=== PATIENT | male | born 1955 | race Caucasian/White ===

== ENCOUNTER 2016-07-30 01:48 | Observation (INO) | payer SELFPAY ==
[2016-07-30] MEDS ORDERED: ASPIRIN 325 MG TABLET PO ONE (01:57)
--- NOTE | 2016-07-30 02:09 | Emergency Department Record ---
History of Present Illness - General Stated Complaint: CHEST PAIN Time Seen by Provider: 07/30/16 01:57 Source: Patient - History of Present Illness Initial Comments: The patient was sitting watching TV when he developed 8-9/10 chest heaviness "like a cement cinder block was on my chest" at 5 p.m. It was non radiating, did not go through to his back, was associated with SOB/JEANETTE. This continued until 12 midnight when he went to bed which worsened his JEANETTE and pain when he laid flat. He got up to take ibuprofen about 12:30 and became very dizzy like he might pass out after he walked across the room. He finally became fearful enough about 1:30 to call EMS because he lives alone and there was no one to help him or find him. Many years ago he states he had a heart attack at the age of 35. He continues to smoke, but denies DM, htn, chol elevation or FH. He does not see any doctors, takes no meds, has no known allergies. MD Complaint: Chest pain - Related Data Home Medications Medication Instructions Recorded Confirmed Last Taken Penicillin V Potassium 500 mg PO BID 09/22/15 09/22/15 09/21/15 Allergies Allergy/AdvReac Type Severity Reaction Status Date / Time No Known Drug Allergies Allergy Verified 09/22/15 03:22 Review of Systems Reviewed: No additional complaints except as noted below Constitutional: Reports: As per HPI. Denies: Chills, Fever, Malaise, Night sweats, Weakness, Weight change Eyes: Reports: As per HPI. Denies: Eye discharge, Eye pain, Photophobia, Vision change ENT: Reports: As per HPI. Denies: Congestion, Dental pain, Ear pain, Epistaxis , Hearing loss, Throat pain Respiratory: Reports: As per HPI. Denies: Cough, Dyspnea, Hemoptysis, Stridor, Wheezes Cardiovascular: Reports: As per HPI. Denies: Arrhythmia, Chest pain, Dyspnea on exertion, Edema, Murmurs, Orthopnea, Palpitations, Paroxysmal nocturnal dyspnea, Rheumatic Fever, Syncope Endocrine: Reports: As per HPI. Denies: Fatigue, Heat or cold intolerance, Polydipsia, Polyuria Gastrointestinal: Reports: As per HPI. Denies: Abdominal pain, Constipation, Diarrhea, Hematemesis, Hematochezia, Melena, Nausea, Vomiting Genitourinary: Reports: As per HPI. Denies: Dysuria, Frequency, Hematuria, Incontinence, Retention, Testicular pain, Testicular mass, Urgency Musculoskeletal: Reports: As per HPI. Denies: Arthralgia, Back pain, Gout, Joint swelling, Myalgia, Neck pain Skin: Reports: As per HPI. Denies: Bruising, Change in color, Change in hair/ nails, Lesions, Pruritus, Rash Neurological: Reports: As per HPI. Denies: Abnormal gait, Confusion, Headache, Numbness, Paresthesias, Seizure, Tingling, Tremors, Vertigo, Weakness Psychiatric: Reports: As per HPI. Denies: Anxiety, Auditory hallucinations, Depression, Homicidal thoughts, Suicidal thoughts, Visual hallucinations Hematological/Lymphatic: Reports: As per HPI. Denies: Anemia, Blood Clots, Easy bleeding, Easy bruising, Swollen glands Past Medical History - SOCIAL HISTORY Smoking Status: Current every day smoker - RESPIRATORY Hx Respiratory Disorders: No - CARDIOVASCULAR Hx Cardio Disorders: Yes Hx Heart Attack: Yes - NEURO Hx Neuro Disorders: No - GI Hx GI Disorders: No - Hx Genitourinary Disorders: No - ENDOCRINE Hx Endocrine Disorders: No Hx Diabetes: No Hx Thyroid Disease: No - MUSCULOSKELETAL Hx Musculoskeletal Disorders: No - PSYCH Hx Psych Problems: No - HEMATOLOGY/ONCOLOGY Hx Hematology/Oncology Disorders: No Family Medical History Hx Heart Disease: Father, Grandparents Physical Exam - General General Appearance: Alert, Oriented x3, Cooperative, No acute distress, Other ( smells of cigarettes) - Head Head exam: Normal inspection - Eye Eye exam: Normal appearance, PERRL Pupils: Normal accommodation - ENT ENT exam: Normal exam, Mucous membranes moist, Normal external ear exam, Normal orophraynx, TM's normal bilaterally Ear exam: Normal external inspection. negative: External canal tenderness Nasal Exam: Normal inspection. negative: Discharge, Sinus tenderness Mouth exam: Normal external inspection, Tongue normal Teeth exam: Normal inspection. negative: Dental caries Throat exam: Normal inspection. negative: Tonsillar erythema, Tonsillar exudate - Neck Neck exam: Normal inspection, Full ROM. negative: Tenderness - Respiratory Respiratory exam: Normal lung sounds bilaterally. negative: Chest wall tenderness, Respiratory distress - Cardiovascular Cardiovascular Exam: Regular rate, Normal rhythm, Normal heart sounds - GI/Abdominal GI/Abdominal exam: Soft, Normal bowel sounds. negative: Tenderness - Rectal Rectal exam: Deferred - exam: Deferred - Extremities Extremities exam: Normal inspection, Full ROM, Normal capillary refill. negative: Calf tenderness, Pedal edema, Tenderness - Back Back exam: Reports: Normal inspection, Full ROM. Denies: Muscle spasm, Rash noted, Tenderness - Neurological Neurological exam: Alert, CN II-XII intact, Normal gait, Oriented X3, Reflexes normal - Psychiatric Psychiatric exam: Normal affect, Normal mood - Skin Skin exam: Dry, Intact, Normal color, Warm Course - Reevaluation(s) Reevaluation #1: Patient is chest pain free which he says began to improve after getting on the oxygen. 07/30/16 02:32 Reevaluation #2: Patient is resting comfortably watching TV and being taken to xray. 07/30/16 02:42 Reevaluation #3: After three nitro the patient went from a 7 down to a 3. Morphine ordered. 07/30/16 03:10 Medical Decision Making - Management Options MDM Management: Additional Work-up Planned (e.g. ADM/Transfer/OP Study) (Admit Dr. Hough obs) - Data Complexity MDM Data: Labs Ordered and/or Reviewed, X-Ray Ordered and/or Reviewed (2 View CXR: Neg per ED physician.), EKG Ordered and/or Reviewed - Lab Data Result diagrams: 07/30/16 01:57 07/30/16 01:57 - EKG Data -: EKG Interpreted by Me (Very subtle, less than 1 mm suggestion of elevation anterior lateral leads) Disposition Disposition: Admit Clinical Impression: Chest pain Qualifiers: Chest pain type: precordial pain Qualified Code(s): R07.2 - Precordial pain Disposition: Still a Patient at [facility] Decision to Admit: Admit from ER Decision to Admit Date: 07/30/16 Decision to Admit Time: 03:13 Accepting Physician: Dr. Hough Condition: (1) Good
[2016-07-30 02:12] LABS: BASO % 0.3 % (0-6); GRAN % 66.2 % (47-80); HEMATOCRIT 39.6 % (42.0-52.0); HEMOGLOBIN 12.9 gm/dl (14.0-18.0); MEAN CORPUSCULAR HEMOGLOBIN 31.9 pg (27-33); MEAN CORPUSCULAR HGB CONC 32.6 g/dl (32-36); MEAN PLATELET VOLUME 10.3 fl (7.4-10.4); MONO % 11.5 % (0-9); PLATELET COUNT 213 K/uL (130-400); RED BLOOD COUNT 4.04 M/uL (4.40-5.70); RED CELL DISTRIBUTION WIDTH 13.5 % (11.5-14.5); WHITE BLOOD COUNT W/O DIFF 10.2 K/uL (4.2-12.2)
[2016-07-30 02:23] LABS: ANION GAP 10.5 (7-16); BLOOD UREA NITROGEN 7 mg/dL (9-20); CARBON DIOXIDE 26.5 mmol/L (22-30); CREATINE PHOSPHOKINASE 57 U/L (55-170); CREATININE 0.7 mg/dL (0.66-1.25); EST GLOMERULAR FILTRATION RATE > 60 ml/min; GLUCOSE,RANDOM 99 mg/dL (70-110)
[2016-07-30 02:32] LABS: INR 0.87; PROTHROMBIN TIME (PATIENT) 9.8 SECONDS (9.5-12.1)
[2016-07-30 02:34] LABS: D-DIMER < 0.19 mg/L FEU (0-0.59)
[2016-07-30 02:35] LABS: CKMB 0.6 ug/L (0-6)
[2016-07-30 02:36] LABS: TROPONIN I < 0.012 ng/mL (0.00-0.034)
[2016-07-30] MEDS: NITROGLYCERIN 0.4MG SL TABLET #25 BTL SL PRN ×3 (02:54→03:03)
[2016-07-30] MEDS ORDERED: MORPHINE SULFATE 5 MG/ML PFS IVP ONE (03:10)
[2016-07-30] MEDS ORDERED: LORAZEPAM 2 MG/ML VIAL IV ONE (03:29)
[2016-07-30] MEDS ORDERED: ACETAMINOPHEN 500 MG TABLET PO PRN (03:47)
[2016-07-30] MEDS ORDERED: MORPHINE SULFATE 5 MG/ML PFS IVP PRN (03:47)
[2016-07-30] MEDS ORDERED: NITROGLYCERIN 0.4MG SL TABLET #25 BTL SL PRN ×2 (03:47→08:45)
[2016-07-30] MEDS ORDERED: AL HYDROX/MAG HYDROX 30ML UD PO PRN (03:47)
--- NOTE | 2016-07-30 07:52 | RADIOLOGY REPORT ---
EXAM: CHEST, TWO VIEWS HISTORY: DIFFICULTY BREATHING. TECHNIQUE: Frontal and lateral views of the chest were obtained. Comparison: None. FINDINGS: The heart size is normal. Azygos fissure incidentally noted. The lungs are clear. There is no pneumothorax. IMPRESSION: NEGATIVE CHEST EXAMINATION. JOB NUMBER: [id number] MTDD
[2016-07-30] MEDS ORDERED: ASPIRIN 325 MG TAB ENTERIC-COATED PO SCH (10:00)
[2016-07-30 10:46] LABS: CKMB 0.5 ug/L (0-6)
[2016-07-30 10:50] LABS: TROPONIN I < 0.012 ng/mL (0.00-0.034)
[2016-07-30 17:54] LABS: CKMB 0.4 ug/L (0-6)
[2016-07-30 17:56] LABS: TROPONIN I < 0.012 ng/mL (0.00-0.034)
--- NOTE | 2016-07-30 18:09 | Discharge Note ---
VTE H&P Assessment - Risk for VTE Risk for VTE: Yes Risk Level: Very Low Risk Assessment Date: 07/30/16 Risk Assessment Time: 18:06 VTE Orders Placed or Will Be Placed: No VTE Reason for No Prophylaxis: Not Indicated Discharge Medications - Discharge Medications Prescriptions: Omeprazole 20 mg PO DAILY #30 tab. Home Medications: Ambulatory Orders Magnesium Hydroxide/Al Hydrox [Maalox] 30 ml PO Q4H PRN 07/30/16 [Last Taken Unknown] Omeprazole 20 mg PO DAILY #30 tab. 07/30/16 [Last Taken Unknown] Discharge Note - Date Date of Discharge Note: 07/30/16 Disposition: Home, Self-Care Condition: (1) Good Additional Instructions: follow up with Dr. Hough in 7 days at 9 am Forms: Patient Portal Access
--- NOTE | 2016-07-31 08:50 | History and Physical Report ---
DATE OF ADMISSION: 07/30/16 CHIEF COMPLAINT: Chest pain. HISTORY OF CHIEF COMPLAINT: This 61-year-old male stated that he was watching TV about 5 p.m. and developed heaviness in his chest. He also became short of breath and he kind of watched it for a while until midnight, went to bed. His dyspnea got worse when he laid down flat. He took an ibuprofen about 12:30 a.m. , became very dizzy, thought he might pass out. He then called EMS and was transported to the hospital for evaluation. Seen by Dr. Majano. After her evaluation, cardiac enzymes were negative and the EKG was normal. D-dimer was negative, brain natriuretic peptide was normal. He was given medications, morphine, nitroglycerin x3 sublingual, aspirin 325, Ativan IV, Mylanta, Tylenol. He was feeling much better. He actually said the pain got better after he got the oxygen. The patient was admitted to the hospital for serial cardiac enzymes and further evaluation. PAST MEDICAL HISTORY: Coronary artery disease at 35 years of age. He states that he had an WI. MEDICATIONS: None. ALLERGIES: None. SOCIAL HISTORY: He smokes 1 pack a day, beer 1-2 cans per day. FAMILY HISTORY: Unremarkable. REVIEW OF SYSTEMS: HEENT: No upper respiratory infection symptoms, cough, cold, or congestion. Cardiovascular: He did have chest pain - see Chief Complaint. He denied any palpitations or orthopnea but he was short of breath. Respiratory: Short of breath but no cough. No hemoptysis, no asthma. He is a smoker. Gastrointestinal: No nausea, vomiting, diarrhea, black stools, or bloody stools but the Mylanta seemed to help him. Genitourinary: No dysuria, hematuria, frequency, or burning on urination. Musculoskeletal: No joint or bone abnormality. Neurological: No CVA, paralysis, or paresthesias, Endocrine: No diabetes or thyroid disease. Integument: No rash, ulcerative change in mole, or yellow skin. PHYSICAL EXAMINATION: VITAL SIGNS: Height 6 feet, weight 200 pounds. Temperature 97.4, pulse 89, blood pressure 116/63, respiratory rate 16, pulse ox 98% on room air. HEENT: Pupils are equal, round, and reactive to light and accommodation. Extraocular movements are intact. Throat is clear. Nose is clear. Tympanic membranes are perdue. NECK: Supple. No jugular venous distention. No hepatojugular reflux. No carotid bruits. Thyroid is smooth. CARDIOVASCULAR: Regular rate and rhythm without murmurs, clicks, rubs, or gallops. RESPIRATORY: Clear to auscultation and percussion. ABDOMEN: Soft and nontender. No hepatosplenomegaly. No masses, no tenderness. Bowel sounds are active. No bruits. EXTREMITIES: No pitting edema. No cyanosis or clubbing. Full range of motion. Peripheral pulses good. BREASTS: Normal male breasts. RECTAL: Exam deferred. GENITALIA: Deferred. NEUROLOGIC: Cranial nerves II-XII intact. No gross defects. Sensation normal. Strength normal. Deep tendon reflexes equal bilaterally. Babinski negative. MENTAL STATUS: Alert and oriented x1. IMPRESSION: 1. Chest pain. 2. Tobacco use. 3. History of a myocardial infarction at 35 years of age with presumptive coronary artery disease but he is not following with any doctors and not taking any medications. PLAN: Serial cardiac enzymes. Further evaluation. [facility]
--- NOTE | 2016-07-31 09:01 | Discharge Summary ---
DISCHARGE DIAGNOSES: 1. Chest pain. 2. Acute gastritis. 3. Possible anterior chest wall syndrome. 4. No cardiac disease found. 5. Alcohol use. 6. Tobacco use. ATTENDING PHYSICIAN: Abraham Hough DO REASON FOR HOSPITALIZATION: Epigastric chest pain radiating to his back after a couple of beers, and after Motrin, it got worse. Came into the ER, evaluated by Dr. Majano, admitted to the hospital for serial cardiac enzymes and stress test. SIGNIFICANT FINDINGS: Cardiac enzymes were negative. The EKG was normal. The stress test was normal. The patient was asymptomatic. The patient feeling much better after Mylanta in the hospital at about 4:30 a.m. He did drink 2-3 beers yesterday and thinks it got worse when he took the ibuprofen. HOSPITAL COURSE: Much improved. CONDITION ON DISCHARGE: Improved. DISCHARGE INSTRUCTIONS: Follow up with Dr. Hough in 7 days on Saturday at about 9 o'clock. Use Mylanta or Maalox 15 mL after meals and at bedtime and omeprazole 20 mg once a day. [facility]
== END 2016-07-30 18:30 | disposition home or self-care (01) ==
LOC: ER 01:48 → MEDSURG 03:35
PROVIDERS: ADMIT Emergency Medicine; ATTEND Emergency Medicine
DX: R07.89 Other chest pain (principal); F17.200 Nicotine dependence, unspecified, uncomplicated; K29.00 Acute gastritis without bleeding; Z72.89 Other problems related to lifestyle
CPT/HCPCS: 99285 ×2; 96374; 96375; 82550; 83690; 85025; 85730; 85610; 82553; 84484; 80048; 85379; 83880; 71020; 94760; 93005; 93017; 93010; G0378; G0480; J2060; J2270; 80320; 99236

== ENCOUNTER 2018-05-12 07:21 | Day surgery (SDC) | payer OTHER ==
[~2018-05-12 07:21] MED LIST: CEFAZOLIN 2 Gram 2 GM/50 ML BAG IVPB ONE
[2018-05-12] MEDS ORDERED: SUCCINYLCHOLINE 20 MG/ML 10ML IVP ONE (07:22)
[2018-05-12] MEDS ORDERED: 0.9 % SODIUM CHLORIDE 10 ML VIAL IVP ONE (07:22)
[2018-05-12] MEDS ORDERED: NEOSTIGMINE 1 MG/1 ML,10ML VIAL IV ONE (07:22)
[2018-05-12] MEDS ORDERED: FENTANYL PF 100MCG/2ML VIAL IV ONE ×2 (07:22)
[2018-05-12] MEDS ORDERED: BUPIVACAINE 0.25% MPF 30ML VIAL IVP ONE (07:22)
[2018-05-12] MEDS ORDERED: BUPIVACAINE 0.25% W/EPI MPF 30ML VIAL IVP ONE (07:22)
[2018-05-12] MEDS ORDERED: ONDANSETRON HCL IV 4 MG/2 ML VIAL IVP ONE (07:22)
[2018-05-12] MEDS ORDERED: MIDAZOLAM HCL 2MG/2ML VIAL IV ONE (07:22)
[2018-05-12] MEDS ORDERED: PROPOFOL 10 MG/ML VIAL IV ONE (07:22)
[2018-05-12] MEDS ORDERED: GLYCOPYRROLATE 0.2 MG/ML ML IV ONE (07:22)
[2018-05-12] MEDS ORDERED: SEVOFLURANE 250 ML INH ONE (07:22)
[2018-05-12] MEDS ORDERED: ROCURONIUM BROMIDE 50MG/5ML VIAL IV ONE (07:22)
[2018-05-12] MEDS ORDERED: LIDOCAINE 2% MDV (20MG/ML) 20ML VIAL IV ONE (07:22)
[2018-05-12] MEDS ORDERED: DEXAMETHASONE 4 MG/ML 1ML VIAL IVP ONE (07:22)
[2018-05-12] MEDS ORDERED: HYDROCODONE/APAP 5/325MG TABLET PO ONE (07:22)
--- NOTE | 2018-05-13 08:30 | Operative Note ---
DATE OF SURGERY: 05/12/2018 Surgeon: Ruel Carson DO PREOPERATIVE DIAGNOSIS: Incarcerated ventral hernia. POSTOPERATIVE DIAGNOSIS: Incarcerated ventral hernia. OPERATION: Open ventral herniorrhaphy with mesh. Indication: The patient is a 63-year-old male who presented with pain and bulging just above the navel. He also had a CT scan done which did show the aforementioned incarcerated hernia. We did discuss repair. Risks, benefits, and alternatives were discussed. Risks include bleeding, infection, acute or chronic pain, recurrence. He understood this fully. Thereafter, consent was signed and questions answered. PROCEDURE: The patient was taken to the operating room and placed in a supine position. General anesthesia was administered per the department of anesthesia. The patient's abdomen was shaved of hair and prepped and draped in the usual fashion. Adequate timeout was performed. He did receive preoperative antibiotic as well as DVT prophylaxis. He also underwent preoperative tap block. The area around the hernia was anesthetized with a total of 10 mL of 0.25% Sensorcaine with epinephrine. A 3.5 cm incision was made. This was carried down through the subcutaneous tissues to the hernia sac. This was circumferentially dissected free from the surrounding tissue, passed off the field. Clean circumferential fascial edges were obtained. The hernia defect measured about 1.5 to 2 cm. At this time, an [address] mesh was obtained. This was placed in the intraperitoneal position for excellent overlap of the hernia. I did approximate and close the defect with 0 Vicryl. The upper skirt had been sutured to the anterior rectus fascia prior. The tails overlapped the fascia and were sutured in place as well. The wound was then closed with 3-0 and 4-0 Vicryl. He was taken to the recovery room in satisfactory condition. Abdominal binder was placed. FINDINGS AT THE TIME OF SURGERY: Incarcerated ventral hernia repaired as above. CC: ALVARO Payton
== END 2018-05-12 10:58 | disposition home or self-care (01) ==
LOC: SUR 07:21
PROVIDERS: ATTEND Surgery
DX: K43.6 Other and unspecified ventral hernia with obstruction, without gangrene (principal); I25.10 Atherosclerotic heart disease of native coronary artery without angina pectoris; I25.2 Old myocardial infarction; F17.210 Nicotine dependence, cigarettes, uncomplicated
CPT/HCPCS: 49561; 00752; 64486; J2405; J3010; J0690; 76942; J0330; J2710